=== PATIENT | female | born 1970 | race Caucasian/White ===

== ENCOUNTER 2018-11-07 01:42 | Inpatient (IN) ==
[2018-11-07] MEDS ORDERED: Aluminum/Magnesium/Simethacone Susp 30 ML UDC PO PRN (05:31)
[2018-11-07] MEDS ORDERED: LORazepam 0.5 MG Tablet PO PRN (05:35)
--- NOTE | 2018-11-08 07:16 | P.HPPSY ---
Provisional Diagnosis Admission Date: November 07, 2018 05:00 Dawson I.: Schizoaffective disorder bipolar type Competence Certification of Person's Competence To Provide Express and Informed Consent I have personally examined Bria Jolly, a person being served at [facility] on, November 08, 2018 0656. Express and informed consent means consent voluntarily given in writing, by a competent person, after sufficient explanation and disclosure of the subject matter involved to enable the person to make a knowing and willful decision without any element of force, fraud, deceit, duress, or other form of constraint or coercion. This person is 18 years of age or older, is not now known to be incompetent to consent to treatment with a guardian advocate, and does not have a health care surrogate or proxy currently making medical treatment decisions. I have found this person to be one of the following: [ Competent to provide express and informed consent, as defined above, for voluntary admission to this facility and is competent to provide express and informed consent for treatment. He/she has the consistent capacity to make well reasoned, willful, and knowing decisions concerning his or her medical or mental health treatment. The person fully and consistently understands the purpose of the admission for examination/placement and is fully capable of personally exercising all rights assured [place] [] Incompetent to provide express and informed consent to voluntary admission, and this is incompetent to provide express and informed consent to treatment. The person must be transferred to involuntary status and a petition for a guardian advocate filed with the Circuit Court. [] Refusing to provide express and informed consent to voluntary admission but is competent to provide express and informed consent for treatment. The person must be discharged or transferred to involuntary status. Form shall be completed within 24 hours of a person's arrival at the receiving facility and filed in the clinical record of each person: 1. Admitted on a voluntary basis 2. Permitted to provide express and informed consent to his/her own treatment 3. Allowed to transfer from involuntary to voluntary status 4. Prior to permitting a person to consent to his or her own treatment after having been previously found incompetent to consent to treatment. History of Present Illness Capacity: Lacks capacity Chief Complaint: Homeless hostile aggressive behavior History of Present Illness: 11/08/2018 HPI: Patient is a 48-year-old female admitted in transfer from [facility]. Patient is homeless and is reported to have been violent and aggressive. Patient gave a false name, creating difficulty with the initial documentation. Patient was noted to be extremely hostile giving little or no information. I received information late that the patient had given an incorrect name but was known to the staff from P previous admissions. Examination of the record is also not helpful since there does not appear to be documentation in previous visit. Patient speaks in a graph hostile manner and a loud voice and turns away from estrogens are Patient is using a walker rapidly down the mcgregor walker for support. - Inpatient Certification I certify that the inpatient services were ordered in accordance with Medicare regulations governing the order. This includes certification that hospital inpatient services are reasonable and necessary and in the case of services not specified as inpatient-only under 42 CFR 419.22(n), that they are appropriately provided as inpatient services in accordance to with the 2-midnight benchmark under 43 CFR 412.3(e) I certify that inpatient psychiatric hospital services are medically necessary. Evaluation and treatment and/or diagnostic testing are expected to improve the patient's condition. The patient needs on a daily basis, active treatment furnished directly by or requiring the supervision of inpatient psychiatric facility personnel. Estimated Total Length of Stay (Days): 5 Plans for Post Hospital Care: Not yet determined [facility] - History History Provided By: Patient Medications and Allergies Active Medications: Active Medications Acetaminophen (Tylenol) 650 mg PO Q4H PRN PRN Reason: PAIN 1-5 OR TEMP > 101 Al Hydrox/Mg Hydrox/Simethicone (Mag-Al Plus Susp Liq) 30 ml PO Q6H PRN PRN Reason: DYSPEPSIA Al Hydroxide/Mg Hydroxide (Milk Of Magnesia Liq) 30 ml PO Q24H PRN PRN Reason: CONSTIPATION Diphenhydramine HCl (Benadryl) 50 mg PO Q6H PRN PRN Reason: For mild anxiety and/or EPS Diphenhydramine HCl (Benadryl) 50 mg PO HS PRN PRN Reason: INSOMNIA Diphenhydramine HCl (Benadryl Inj) 50 mg IM HS PRN PRN Reason: INSOMNIA Diphenhydramine HCl (Benadryl Inj) 50 mg IM Q6H PRN PRN Reason: For mild anxiety and/or EPS Lorazepam (Ativan) 0.5 mg PO Q12H PRN PRN Reason: MODERATE TO SEVERE ANXIETY Lorazepam (Ativan Inj) 0.5 mg IM Q12H PRN PRN Reason: MODERATE TO SEVERE ANXIETY Nicotine (Habitrol 21 Mg Patch.24 Hr) 1 patch T-DERMAL DAILY [facility] Last Admin: 11/07/18 09:21 Dose: 1 patch Patch Removal (Remove Old Patch) 1 each T-DERMAL HS [facility] Last Admin: 11/07/18 23:54 Dose: Not Given Allergies Allergy/AdvReac Type Severity Reaction Status Date / Time No Known Allergies Allergy Verified 11/07/18 05:20 Exam Vital signs: Vital Signs 11/07/18 18:20 11/08/18 05:54 Temperature 98.4 F 98.8 F Pulse Rate 83 97 H Respiratory Rate 18 16 Blood Pressure 133/75 119/79 Pulse Oximetry 96 97 Intake & Output 11/07/18 11/07/18 11/08/18 06:59 18:59 06:59 Weight 60.6 kg Other: Weight On Admission 60.6 kg Mental Status Examination Appearance: Dirty, Disheveled Consciousness: Alert, Vigilant Orientation: Person, Place Motor Activity: Other (Uses walker for minimal support) Speech: Other (Hostile gruff loud) Language: Adequate Fund of Knowledge: Poor Attention and Concentration: Easily distracted Mood: Angry, Irritable Affect: Labile Thought Process & Associations: Other (Limited) Thought Content: Other (Unable to test) Hallucination Type: None Delusion Type: Other (Behavior suggests paranoia) Insight: Poor Judgment: Poor Assessment and Plan - Plan Plan: Estimated LOS: [5] days Plan not yet determined Justification for Continued Inpatient Stay: Patient appears to be hostile and paranoid with some aggressive behavior. Little or no information available for making decision as to the patient's baseline behavior.
[2018-11-08] MEDS: Acetaminophen 325 MG Tablet PO PRN (13:11)
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
[2018-11-09] MEDS: Acetaminophen 325 MG Tablet PO PRN ×2 (09:03→15:23)
[2018-11-09] MEDS: Haloperidol 5 MG Tablet PO SCH ×2 (11:26→22:05)
--- NOTE | 2018-11-09 16:14 | P.PNPSY ---
Subjective Chief Complaint: Homeless hostile aggressive behavior Remarks: Patient seen for follow-up, chart reviewed, patient discussed with nursing staff ; we reviewed the patient's mood, thoughts, and behaviors from overnight and this morning. Nurse reports that the patient remains hostile and guarded with staff but is asking to be restarted on her medications. Patient was seen sitting in the day room quietly keeping to herself. Patient became quickly agitated during conversation with the provider, raising her voice, cussing at the provider and demanding that her medications be restarted. The patient cooperated with the informed consent process then asked to be left alone. Review of Systems unobtainable due to mental status Mental Status Examination Appearance: Dirty, Disheveled Consciousness: Alert, Vigilant Orientation: Person, Place Motor Activity: Other (Uses walker for minimal support) Speech: Other (Hostile gruff loud) Language: Adequate Fund of Knowledge: Poor Attention and Concentration: Easily distracted Mood: Angry, Irritable Affect: Labile Thought Process & Associations: Other (Limited) Thought Content: Other (Unable to test) Hallucination Type: None Delusion Type: Other (Behavior suggests paranoia) Suicidal Ideation: No Homicidal Ideation: No Insight: Poor Judgment: Poor Assessment and Plan - Assessment (1) Unspecified episodic mood disorder Code(s): F39 - Unspecified mood [affective] disorder Status: Acute - Plan Plan: 11/09/2018: Unsatisfactory response to treatment; the patient remains hostile and aggressive with disorganized thoughts and behaviors but she is agreeable with restart of previous medications. Continue inpatient psychiatric treatment and stabilization. Restart Haldol 5 mg twice a day for treatment of psychosis. -Restart Cogentin 0.5 mg twice a day for EPS. Discharge planning: The patient is homeless and is not wanting to be referred back to an [facility] at this time but this may soften as she is stabilized with treatment. Justification for Continued Inpatient Stay: Patient remains an elevated risk for self-harm by self neglect and will require further inpatient stabilization and preparation of a safe discharge plan. Moving patient to a less restrictive environment at this time may result in decompensation.
[2018-11-10] MEDS: Haloperidol 5 MG Tablet PO SCH ×2 (08:24→21:33)
[2018-11-10] MEDS: Acetaminophen 325 MG Tablet PO PRN ×3 (08:25→18:25)
--- NOTE | 2018-11-10 15:14 | P.PNPSY ---
Subjective Chief Complaint: Homeless hostile aggressive behavior Remarks: Patient seen for follow-up, chart reviewed, patient discussed with nursing staff ; we reviewed the patient's mood, thoughts, and behaviors from overnight and this morning. Nursing describes the patient has agitated and restless overnight only getting 6 hours of sleep. She has been cooperative with her medications. Patient has been drinking water excessively and when attempted to redirect the patient becomes hostile towards staff. Patient was guarded with the interviewer and initially seemed pleasant but quickly turned angry and walked away from the provider. She seems to be bothered by the difficulty will have an understanding her speech impediment. Patient not been yelling at others or at the provider today which is an improvement. Review of Systems unobtainable due to mental status Mental Status Examination Appearance: Dirty, Disheveled Consciousness: Alert, Vigilant Orientation: Person, Place Motor Activity: Normal gait Speech: Other (Hostile gruff loud) Language: Adequate Fund of Knowledge: Poor Attention and Concentration: Easily distracted Mood: Angry, Irritable Affect: Labile Thought Process & Associations: Other (Limited) Thought Content: Other (Unable to test) Hallucination Type: None Delusion Type: Other (Behavior suggests paranoia) Suicidal Ideation: No Homicidal Ideation: No Insight: Poor Judgment: Poor Assessment and Plan - Assessment (1) Unspecified episodic mood disorder Code(s): F39 - Unspecified mood [affective] disorder Status: Acute - Plan Plan: 11/09/2018: Unsatisfactory response to treatment; the patient remains hostile and aggressive with disorganized thoughts and behaviors but she is agreeable with restart of previous medications. Continue inpatient psychiatric treatment and stabilization. Restart Haldol 5 mg twice a day for treatment of psychosis. -Restart Cogentin 0.5 mg twice a day for EPS. Discharge planning: The patient is homeless and is not wanting to be referred back to an [facility] at this time but this may soften as she is stabilized with treatment. 11/10/2018: Fair response to treatment, the patient was less aggressive today but affect and mood remains labile and she continues to be guarded and somewhat paranoid. Continue inpatient psychiatric treatment and stabilization. -Continue current medications to include Haldol 5 mg twice a day for treatment of psychosis and Cogentin 0.5 mg twice a day for EPS. Justification for Continued Inpatient Stay: Patient remains an elevated risk for self-harm by self neglect and risk of harm to others through aggressive acting out of her paranoia and therefore will require further inpatient stabilization and preparation of a safe discharge plan. Moving patient to a less restrictive environment at this time may result in decompensation.
[2018-11-11] MEDS: Haloperidol 5 MG Tablet PO SCH ×2 (08:36→20:31)
--- NOTE | 2018-11-11 11:01 | P.PNPSY ---
Subjective Chief Complaint: Homeless hostile aggressive behavior Remarks: Patient seen for follow-up, chart reviewed, patient discussed with nursing staff ; we reviewed the patient's mood, thoughts, and behaviors from overnight and this morning. Nursing report from evening shift indicates the patient was much more pleasant and cooperative, she was not hostile when interacting with staff. Patient was seen this morning and she was initially pleasant in her interactions with the provider. She denied any thoughts of suicidal ideations or homicidal ideations. She denied any auditory or visual hallucinations. She denied any pain or discomfort. We discussed her current medications and she expressed satisfaction as well as good tolerability. We discussed her treatment plan and she expressed a sincere motivation to remain in the hospital until medications fully stabilized and she is willing to work with the unit social workers to find senior living placement. The patient agreed to sign voluntarily paperwork. The patient did become acutely agitated and demanding that the paperwork be provided to hurt immediately and she followed the provider to the nurse's station and stood outside the door looking distressed as the orders were placed to convert the patient to voluntary. The patient was redirectable by her nurse without incident. Review of Systems All other systems reviewed negative except as stated in HPI Mental Status Examination Appearance: Appropriate Consciousness: Alert, Vigilant Orientation: x4 Motor Activity: Normal gait Speech: Other (Hostile gruff loud) Language: Adequate Fund of Knowledge: Poor Attention and Concentration: Easily distracted Memory: Unremarkable Mood: Irritable Affect: Labile Thought Process & Associations: Other (Limited) Thought Content: Other (Negativistic and paranoid) Hallucination Type: None Delusion Type: None Suicidal Ideation: No Suicidal Plan: No Suicidal Intention: No Homicidal Ideation: No Homicidal Plan: No Homicidal Intention: No Insight: Fair Judgment: Impulsive Assessment and Plan - Assessment (1) Unspecified episodic mood disorder Code(s): F39 - Unspecified mood [affective] disorder Status: Acute - Plan Plan: 11/09/2018: Unsatisfactory response to treatment; the patient remains hostile and aggressive with disorganized thoughts and behaviors but she is agreeable with restart of previous medications. Continue inpatient psychiatric treatment and stabilization. Restart Haldol 5 mg twice a day for treatment of psychosis. -Restart Cogentin 0.5 mg twice a day for EPS. Discharge planning: The patient is homeless and is not wanting to be referred back to an [facility] at this time but this may soften as she is stabilized with treatment. 11/10/2018: Fair response to treatment, the patient was less aggressive today but affect and mood remains labile and she continues to be guarded and somewhat paranoid. Continue inpatient psychiatric treatment and stabilization. -Continue current medications to include Haldol 5 mg twice a day for treatment of psychosis and Cogentin 0.5 mg twice a day for EPS. 11/11/2018: Good response to treatment, she continues to progress with decreased aggressive behaviors with staff and peers. She remains labile and easily agitated but not to the extent that she has yelling out or otherwise threatening. She was able to participate in discussions about her treatment plan and eventual discharge plan and she expressed sincere willingness to continue working with her treatment team therefore will be allowed to sign herself involuntarily. Continue inpatient psychiatric treatment and stabilization, convert to voluntary status. -Continue current medications to include Haldol 5 mg twice a day for treatment of psychosis and Cogentin 0.5 mg twice a day for EPS. Discharge planning: Patient will need follow-up with psychiatry as well as assistance in finding senior living. Justification for Continued Inpatient Stay: Patient remains an elevated risk for self-harm by self neglect and risk of harm to others if she has been aggressive intermittently through this hospitalization as a consequence of her paranoia and therefore she will require further inpatient stabilization and preparation of a safe discharge plan. Moving patient to a less restrictive environment at this time may result in decompensation.
[2018-11-11] MEDS: Acetaminophen 325 MG Tablet PO PRN (13:15)
[2018-11-12] MEDS: Haloperidol 5 MG Tablet PO SCH ×2 (08:36→21:13)
--- NOTE | 2018-11-12 12:15 | P.PNPSY ---
Subjective Chief Complaint: Homeless hostile aggressive behavior Remarks: Patient seen for follow-up, chart reviewed, patient discussed with nursing staff ; we reviewed the patient's mood, thoughts, and behaviors from overnight and this morning. Nursing reports the patient remained seclusive to her room on the evening shift and was irritable with staff. Patient was seen this morning after breakfast and as usual she is initially pleasant. With the provider but then her affect changes quickly if she becomes frustrated with communications. She was asked about her hospitalization and she denies wanting to leave and remains cooperative with care. She reports good tolerability of medications satisfied with her efficacy. We discussed her constant thirst for water she was encouraged to drink some Gatorade with meals to ensure that she does not drop her sodium to low. She reports that her thirst is a chronic problem and she seems to lack insight as to why the staff are concerned. Review of Systems All other systems reviewed negative except as stated in HPI Mental Status Examination Appearance: Appropriate Consciousness: Alert, Vigilant Orientation: x4 Motor Activity: Normal gait Speech: Other (Hostile gruff loud) Language: Adequate Fund of Knowledge: Poor Attention and Concentration: Easily distracted Memory: Unremarkable Mood: Irritable Affect: Labile Thought Process & Associations: Other (Limited) Thought Content: Other (Negativistic and paranoid) Hallucination Type: None Delusion Type: None Suicidal Ideation: No Suicidal Plan: No Suicidal Intention: No Homicidal Ideation: No Homicidal Plan: No Homicidal Intention: No Insight: Fair Judgment: Impulsive Assessment and Plan - Assessment (1) Unspecified episodic mood disorder Code(s): F39 - Unspecified mood [affective] disorder Status: Acute - Plan Plan: 11/09/2018: Unsatisfactory response to treatment; the patient remains hostile and aggressive with disorganized thoughts and behaviors but she is agreeable with restart of previous medications. Continue inpatient psychiatric treatment and stabilization. Restart Haldol 5 mg twice a day for treatment of psychosis. -Restart Cogentin 0.5 mg twice a day for EPS. Discharge planning: The patient is homeless and is not wanting to be referred back to an [facility] at this time but this may soften as she is stabilized with treatment. 11/10/2018: Fair response to treatment, the patient was less aggressive today but affect and mood remains labile and she continues to be guarded and somewhat paranoid. Continue inpatient psychiatric treatment and stabilization. -Continue current medications to include Haldol 5 mg twice a day for treatment of psychosis and Cogentin 0.5 mg twice a day for EPS. 11/11/2018: Good response to treatment, she continues to progress with decreased aggressive behaviors with staff and peers. She remains labile and easily agitated but not to the extent that she has yelling out or otherwise threatening. She was able to participate in discussions about her treatment plan and eventual discharge plan and she expressed sincere willingness to continue working with her treatment team therefore will be allowed to sign herself involuntarily. Continue inpatient psychiatric treatment and stabilization, convert to voluntary status. -Continue current medications to include Haldol 5 mg twice a day for treatment of psychosis and Cogentin 0.5 mg twice a day for EPS. Discharge planning: Patient will need follow-up with psychiatry as well as assistance in finding intermediate. 11/12/2018: Good response to treatment, no need for ETO's of the last 48 hours and she is having moments of appropriate mood and interactions without hostility. Continue inpatient psychiatric treatment and stabilization as the patient is slowly progressing with the current medication regimen. Justification for Continued Inpatient Stay: Patient remains an elevated risk for self-harm by self neglect and will require further inpatient stabilization and preparation of a safe discharge plan. Moving patient to a less restrictive environment at this time may result in decompensation.
[2018-11-12] MEDS: Acetaminophen 325 MG Tablet PO PRN ×2 (15:09→21:21)
[2018-11-13] MEDS: Haloperidol 5 MG Tablet PO SCH ×2 (09:44→21:00)
[2018-11-13] MEDS: Acetaminophen 325 MG Tablet PO PRN ×2 (10:26→17:11)
--- NOTE | 2018-11-13 13:15 | P.PNPSY ---
Subjective Chief Complaint: Homeless hostile aggressive behavior Remarks: Patient seen for follow-up, chart reviewed, patient discussed with nursing staff ; we reviewed the patient's mood, thoughts, and behaviors from overnight and this morning. Nurse reports that the patient seemed to be responding to internal stimuli on the evening shift. She complained of pain but was given Tylenol and it was effective with a reduction from 7 out of 10 to 4 out of 10. Patient was seen at bedside this morning that she was very irritable with psychiatrist and nurse. The patient did complain of not having her nicotine patch put on early enough and also complaining of pain. Patient was asked whether she is been treated with antidepressants in the past to help with her irritability and she confirmed that she had. We discussed various SSRIs and she had positive reflections about Prozac and after discussion of the risk benefits side effects and alternatives he agrees to add Prozac as an adjunctive treatment of her mood and behavior. Mental Status Examination Appearance: Appropriate Consciousness: Alert, Vigilant Orientation: x4 Motor Activity: Normal gait Speech: Other (Hostile gruff loud) Language: Adequate Fund of Knowledge: Poor Attention and Concentration: Easily distracted Memory: Unremarkable Mood: Irritable Affect: Labile Thought Process & Associations: Other (Limited) Thought Content: Other (Negativistic and paranoid) Hallucination Type: None Delusion Type: None Suicidal Ideation: No Suicidal Plan: No Suicidal Intention: No Homicidal Ideation: No Homicidal Plan: No Homicidal Intention: No Insight: Fair Judgment: Impulsive Assessment and Plan - Assessment (1) Unspecified episodic mood disorder Code(s): F39 - Unspecified mood [affective] disorder Status: Acute (2) Anxiety Code(s): F41.9 - Anxiety disorder, unspecified Status: Acute - Plan Plan: 11/09/2018: Unsatisfactory response to treatment; the patient remains hostile and aggressive with disorganized thoughts and behaviors but she is agreeable with restart of previous medications. Continue inpatient psychiatric treatment and stabilization. Restart Haldol 5 mg twice a day for treatment of psychosis. -Restart Cogentin 0.5 mg twice a day for EPS. Discharge planning: The patient is homeless and is not wanting to be referred back to an NURSING HOME at this time but this may soften as she is stabilized with treatment. 11/10/2018: Fair response to treatment, the patient was less aggressive today but affect and mood remains labile and she continues to be guarded and somewhat paranoid. Continue inpatient psychiatric treatment and stabilization. -Continue current medications to include Haldol 5 mg twice a day for treatment of psychosis and Cogentin 0.5 mg twice a day for EPS. 11/11/2018: Good response to treatment, she continues to progress with decreased aggressive behaviors with staff and peers. She remains labile and easily agitated but not to the extent that she has yelling out or otherwise threatening. She was able to participate in discussions about her treatment plan and eventual discharge plan and she expressed sincere willingness to continue working with her treatment team therefore will be allowed to sign herself involuntarily. Continue inpatient psychiatric treatment and stabilization, convert to voluntary status. -Continue current medications to include Haldol 5 mg twice a day for treatment of psychosis and Cogentin 0.5 mg twice a day for EPS. Discharge planning: Patient will need follow-up with psychiatry as well as assistance in finding [facility]. 11/12/2018: Good response to treatment, no need for ETO's of the last 48 hours and she is having moments of appropriate mood and interactions without hostility. Continue inpatient psychiatric treatment and stabilization as the patient is slowly progressing with the current medication regimen. 11/13/2018: Fair response to treatment as the patient has not required ETO's in over 72 hours but her mood remains extremely hostile at times and her aggression places her at risk of harm to self and others. The patient's hostility seems to stem from a decreased frustration tolerance as well as anxiety therefore SSRI recommended for treatment and the patient agrees. Continue inpatient psychiatric treatment and stabilization as the patient is slowly progressing with the current medication regimen. Start Prozac 20 mg/day for treatment of anxiety and irritability. Discharge planning: Patient will need follow-up with psychiatry as well as assistance in finding [facility], anticipate discharge on Friday. Justification for Continued Inpatient Stay: Patient remains an elevated risk for self-harm by self neglect due to her paranoia as well as risk of harm to others through her paranoia and aggressive behaviors and therefore will require further inpatient stabilization and preparation of a safe discharge plan. Moving patient to a less restrictive environment at this time may result in decompensation.
[2018-11-13] MEDS: FLUoxetine 20 MG Capsule PO SCH (21:00)
[2018-11-14] MEDS: Haloperidol 5 MG Tablet PO SCH ×2 (09:27→21:02)
[2018-11-14] MEDS: Acetaminophen 325 MG Tablet PO PRN ×2 (09:29→17:52)
--- NOTE | 2018-11-14 13:06 | P.PNPSY ---
Subjective Chief Complaint: Homeless hostile aggressive behavior Remarks: Patient was seen and case discussed with nursing. Patient is intrusive and loose. She is difficult to understand with some pressured speech. She is behaving well on the unit. Interacting well with others. Compliant with medications. Her auditory hallucinations are telling her that they are sorry. Affect is quite irritable Review of Systems All other systems reviewed negative except as stated in HPI Mental Status Examination Appearance: Appropriate Consciousness: Alert, Vigilant Orientation: x4 Motor Activity: Normal gait Speech: Other (Hostile gruff loud) Language: Adequate Fund of Knowledge: Poor Attention and Concentration: Easily distracted Memory: Unremarkable Mood: Irritable Affect: Labile Thought Process & Associations: Other (Limited) Thought Content: Other (Negativistic and paranoid) Hallucination Type: None Delusion Type: None Suicidal Ideation: No Suicidal Plan: No Suicidal Intention: No Homicidal Ideation: No Homicidal Plan: No Homicidal Intention: No Insight: Fair Judgment: Impulsive Assessment and Plan - Assessment (1) Unspecified episodic mood disorder Code(s): F39 - Unspecified mood [affective] disorder Status: Acute (2) Anxiety Code(s): F41.9 - Anxiety disorder, unspecified Status: Acute - Plan Plan: Continue current treatment plan Justification for Continued Inpatient Stay: Patient would decompensate in a less restrictive setting
[2018-11-14] MEDS: FLUoxetine 20 MG Capsule PO SCH (21:02)
[2018-11-15] MEDS: Haloperidol 5 MG Tablet PO SCH ×2 (08:42→20:54)
[2018-11-15] MEDS: Acetaminophen 325 MG Tablet PO PRN (08:43)
--- NOTE | 2018-11-15 17:25 | P.PNPSY ---
Subjective Chief Complaint: Homeless hostile aggressive behavior Remarks: Reviewed electronic medical records and discussed case with staff. Follow-up was conducted in the patient's room with EB Graves present. Patient is found in her bed awake. States that she is "doing all right". Reports that she is sleeping "kind disorder okay". She reports good appetite. When asked to rate her mood she states that she is "sad, angry, and depressed". When asked why she feels this way she states "I was killed and so was my ". When I asked her him she was killed by she states, "you know who Anastasia Norris". At that point she tells me to get out of her room and I do so. Mental Status Examination Appearance: Appropriate Consciousness: Alert, Vigilant Orientation: x4 Motor Activity: Normal gait Speech: Other (Hostile gruff loud) Language: Adequate Fund of Knowledge: Poor Attention and Concentration: Easily distracted Memory: Unremarkable Mood: Irritable Affect: Labile Thought Process & Associations: Other (Limited) Thought Content: Other (Negativistic and paranoid) Hallucination Type: None Delusion Type: None Suicidal Ideation: No Suicidal Plan: No Suicidal Intention: No Homicidal Ideation: No Homicidal Plan: No Homicidal Intention: No Insight: Fair Judgment: Impulsive Assessment and Plan - Assessment (1) Unspecified episodic mood disorder Code(s): F39 - Unspecified mood [affective] disorder Status: Acute - Plan Plan: Patient will be reevaluated by the attending psychiatrist. Continue with current treatment plan. Justification for Continued Inpatient Stay: Moving this patient to a less restrictive environment would likely result in decompensation.
[2018-11-15] MEDS: FLUoxetine 20 MG Capsule PO SCH (20:54)
[2018-11-16] MEDS: Haloperidol 5 MG Tablet PO SCH (08:50)
--- NOTE | 2018-11-16 13:52 | P.PNPSY ---
Subjective Chief Complaint: Homeless hostile aggressive behavior Remarks: Patient seen for follow-up, chart reviewed, patient discussed with nursing staff ; we reviewed the patient's mood, thoughts, and behaviors from overnight and this morning. Nurse reports the patient has been calm and cooperative today. Documentation in the chart reveals that the patient was hostile with staff over the weekend. She expressed the delusional belief that she and her were killed by Anastasia Norris. 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 Patient was described as labile , impulsive, and abrupt. Patient was seen at bedside after lunch where she was taking a nap. She was easy to awaken by name. Patient was asked about her weekend that she reports "same old same old." Patient was asked about her mood and she continues to express an angry and anxious mood. She denies any physical discomfort and seems to be tolerating her medications to include the start of Prozac. The patient on her own asked about previous discussions we had as to changing her Haldol to a injectable form. We discussed risks benefits side effects and alternatives and the patient completed the informed consent signatures for Haldol Decanoate. The patient was advised that we would be pursuing a safe discharge plan this week and she had no comment. Review of Systems All other systems reviewed negative except as stated in HPI Mental Status Examination Appearance: Appropriate Consciousness: Alert, Vigilant Orientation: x4 Motor Activity: Normal gait Speech: Other (Hostile gruff loud) Language: Adequate Fund of Knowledge: Poor Attention and Concentration: Easily distracted Memory: Unremarkable Mood: Irritable Affect: Labile Thought Process & Associations: Other (Limited) Thought Content: Other (Negativistic and paranoid) Hallucination Type: None Delusion Type: None Suicidal Ideation: No Suicidal Plan: No Suicidal Intention: No Homicidal Ideation: No Homicidal Plan: No Homicidal Intention: No Insight: Fair Judgment: Impulsive Assessment and Plan - Assessment (1) Unspecified episodic mood disorder Code(s): F39 - Unspecified mood [affective] disorder Status: Acute (2) Anxiety Code(s): F41.9 - Anxiety disorder, unspecified Status: Acute - Plan Plan: 11/09/2018: Unsatisfactory response to treatment; the patient remains hostile and aggressive with disorganized thoughts and behaviors but she is agreeable with restart of previous medications. Continue inpatient psychiatric treatment and stabilization. Restart Haldol 5 mg twice a day for treatment of psychosis. -Restart Cogentin 0.5 mg twice a day for EPS. Discharge planning: The patient is homeless and is not wanting to be referred back to an [facility] at this time but this may soften as she is stabilized with treatment. 11/10/2018: Fair response to treatment, the patient was less aggressive today but affect and mood remains labile and she continues to be guarded and somewhat paranoid. Continue inpatient psychiatric treatment and stabilization. -Continue current medications to include Haldol 5 mg twice a day for treatment of psychosis and Cogentin 0.5 mg twice a day for EPS. 11/11/2018: Good response to treatment, she continues to progress with decreased aggressive behaviors with staff and peers. She remains labile and easily agitated but not to the extent that she has yelling out or otherwise threatening. She was able to participate in discussions about her treatment plan and eventual discharge plan and she expressed sincere willingness to continue working with her treatment team therefore will be allowed to sign herself involuntarily. Continue inpatient psychiatric treatment and stabilization, convert to voluntary status. -Continue current medications to include Haldol 5 mg twice a day for treatment of psychosis and Cogentin 0.5 mg twice a day for EPS. Discharge planning: Patient will need follow-up with psychiatry as well as assistance in finding senior care. 11/12/2018: Good response to treatment, no need for ETO's of the last 48 hours and she is having moments of appropriate mood and interactions without hostility. Continue inpatient psychiatric treatment and stabilization as the patient is slowly progressing with the current medication regimen. 11/13/2018: Fair response to treatment as the patient has not required ETO's in over 72 hours but her mood remains extremely hostile at times and her aggression places her at risk of harm to self and others. The patient's hostility seems to stem from a decreased frustration tolerance as well as anxiety therefore SSRI recommended for treatment and the patient agrees. Continue inpatient psychiatric treatment and stabilization as the patient is slowly progressing with the current medication regimen. Start Prozac 20 mg/day for treatment of anxiety and irritability. Discharge planning: Patient will need follow-up with psychiatry as well as assistance in finding senior care, anticipate discharge on Friday. 11/16/2018: Unsatisfactory response to treatment; the patient remains hostile and irritable as well as expressing delusional thinking despite compliance with current medications. The patient had initially refused discussions about increasing her medications or changing to a long-acting injectable but today she was asking about these treatments without being prompted. She expressed sincere motivation to increase her Haldol and switch to a long-acting injectable form. She was more ambivalent about discharge plans today which is an improvement over her reported hostility and combativeness when it was suggested she be discharged the start of this week. Continue inpatient treatment and stabilization, observing for continued tolerability of psychotropics and the recent increase of her Haldol. Convert Haldol to Haldol decanoate 100 mg IM every 28 days first dose today. Continue Prozac 20 mg a day for treatment of anxiety and irritability. Discharge planning: Patient will need follow-up with psychiatry as well as assistance in finding senior care, anticipate discharge this week. Justification for Continued Inpatient Stay: Patient remains an elevated risk for self-harm by self neglect and risk of harm to others through her paranoia and aggressive acting out, therefore she will require further inpatient stabilization and preparation of a safe discharge plan. Moving patient to a less restrictive environment at this time may result in decompensation.
[2018-11-16] MEDS ORDERED: Haloperidol Decanoate Inj 50 MG/ML Ampul IM ONE (15:00)
[2018-11-16 16:51] VITALS: O2SAT 98
[2018-11-16] MEDS: FLUoxetine 20 MG Capsule PO SCH (20:23)
[2018-11-17 05:28] VITALS: BP 120/70; PULSE 70; RESP 16; TEMP 97.9
[2018-11-17] MEDS ORDERED: Haloperidol Decanoate Inj 50 MG/ML Ampul IM SCH (13:15)
--- NOTE | 2018-11-17 15:41 | P.DSPSY ---
Psychiatry Discharge Summary Inpatient Psychiatric care?: Yes Advance Directives: No Mental Health Advance Directive: No Health Care Proxy: No - Admission Admission Date: November 07, 2018 05:00 - Admission Diagnosis (1) Unspecified episodic mood disorder Code(s): F39 - Unspecified mood [affective] disorder Brief History: 11/08/2018 HPI: Patient is a 48-year-old female admitted in transfer from [facility]. Patient is homeless and is reported to have been violent and aggressive. Patient gave a false name, creating difficulty with the initial documentation. Patient was noted to be extremely hostile giving little or no information. I received information late that the patient had given an incorrect name but was known to the staff from P previous admissions. Examination of the record is also not helpful since there does not appear to be documentation in previous visit. Patient speaks in a graph hostile manner and a loud voice and turns away from estrogens are Patient is using a walker rapidly down the [employer] walker for support. Tobacco Use In Past 30 Days: Yes How Often Do You Have a Drink Containing Alcohol: Never Hospital Course: 11/09/2018: Unsatisfactory response to treatment; the patient remains hostile and aggressive with disorganized thoughts and behaviors but she is agreeable with restart of previous medications. Continue inpatient psychiatric treatment and stabilization. Restart Haldol 5 mg twice a day for treatment of psychosis. -Restart Cogentin 0.5 mg twice a day for EPS. Discharge planning: The patient is homeless and is not wanting to be referred back to an [facility] at this time but this may soften as she is stabilized with treatment. 11/10/2018: Fair response to treatment, the patient was less aggressive today but affect and mood remains labile and she continues to be guarded and somewhat paranoid. Continue inpatient psychiatric treatment and stabilization. -Continue current medications to include Haldol 5 mg twice a day for treatment of psychosis and Cogentin 0.5 mg twice a day for EPS. 11/11/2018: Good response to treatment, she continues to progress with decreased aggressive behaviors with staff and peers. She remains labile and easily agitated but not to the extent that she has yelling out or otherwise threatening. She was able to participate in discussions about her treatment plan and eventual discharge plan and she expressed sincere willingness to continue working with her treatment team therefore will be allowed to sign herself involuntarily. Continue inpatient psychiatric treatment and stabilization, convert to voluntary status. -Continue current medications to include Haldol 5 mg twice a day for treatment of psychosis and Cogentin 0.5 mg twice a day for EPS. Discharge planning: Patient will need follow-up with psychiatry as well as assistance in finding prison. 11/12/2018: Good response to treatment, no need for ETO's of the last 48 hours and she is having moments of appropriate mood and interactions without hostility. Continue inpatient psychiatric treatment and stabilization as the patient is slowly progressing with the current medication regimen. 11/13/2018: Fair response to treatment as the patient has not required ETO's in over 72 hours but her mood remains extremely hostile at times and her aggression places her at risk of harm to self and others. The patient's hostility seems to stem from a decreased frustration tolerance as well as anxiety therefore SSRI recommended for treatment and the patient agrees. Continue inpatient psychiatric treatment and stabilization as the patient is slowly progressing with the current medication regimen. Start Prozac 20 mg/day for treatment of anxiety and irritability. Discharge planning: Patient will need follow-up with psychiatry as well as assistance in finding prison, anticipate discharge on Friday. 11/16/2018: Unsatisfactory response to treatment; the patient remains hostile and irritable as well as expressing delusional thinking despite compliance with current medications. The patient had initially refused discussions about increasing her medications or changing to a long-acting injectable but today she was asking about these treatments without being prompted. She expressed sincere motivation to increase her Haldol and switch to a long-acting injectable form. She was more ambivalent about discharge plans today which is an improvement over her reported hostility and combativeness when it was suggested she be discharged the start of this week. Continue inpatient treatment and stabilization, observing for continued tolerability of psychotropics and the recent increase of her Haldol. Convert Haldol to Haldol decanoate 100 mg IM every 28 days first dose today. Continue Prozac 20 mg a day for treatment of anxiety and irritability. Discharge planning: Patient will need follow-up with psychiatry as well as assistance in finding prison, anticipate discharge this week. Justification for Continued Inpatient Stay: Patient remains an elevated risk for self-harm by self neglect and risk of harm to others through her paranoia and aggressive acting out, therefore she will require further inpatient stabilization and preparation of a safe discharge plan. Moving patient to a less restrictive environment at this time may result in decompensation. 11/17/2018: Patient was seen and examined on the unit by psychiatry and also visited by counselor. Psychotropic medications remained well tolerated. There was a good response to inpatient treatment plan noted by nursing and provider observations, and the patient reported improvements in mood, anxiety, and there was no evidence of any suicidality or homicidality at time of discharge. The unit renal social worker was able to reach out to the patient's previous assisted living facility and a room is still available for her and they were willing to accept her back today. Psychiatric follow-up as arranged by counselor. Patient is also to follow up with primary care. I have counseled the patient to abstain from substances of abuse including cannabis and have counseled patient to return to the psychiatric emergency room for any concerning symptoms as part of a general safety plan. Discharge medications include Cogentin 1 mg twice a day #60 refill 0, Benadryl 50 mg at bedtime as needed for sleep #30 refills 0, Prozac 20 mg by mouth once a day #30 refill 0, Haldol decanoate 100 mg IM every 28 days with the next shot scheduled for December 15, 2018. - Discharge Discharge Date: 11/17/18 - Discharge Diagnosis (1) Schizophrenia, paranoid, chronic Code(s): F20.0 - Paranoid schizophrenia Status: Acute (2) Anxiety Code(s): F41.9 - Anxiety disorder, unspecified Status: Acute Discharge Disposition: Assisted Living Facility - Discharge Instructions Discharge Diet: Regular Diet Activities You Can Perform: Regular- No Restrictions - Discharge Time > 30 minutes Mental Status Examination Appearance: Appropriate Consciousness: Alert, Vigilant Orientation: x4 Motor Activity: Normal gait Speech: Other (Hostile gruff loud) Language: Adequate Fund of Knowledge: Adequate Attention and Concentration: Adequate, Easily distracted Memory: Unremarkable Mood: Good Affect: Euthymic Thought Process & Associations: Other (Limited) Thought Content: Appropriate Hallucination Type: None Delusion Type: None Suicidal Ideation: No Suicidal Plan: No Suicidal Intention: No Homicidal Ideation: No Homicidal Plan: No Homicidal Intention: No Insight: Fair Judgment: Impulsive Discharge/Advance Care Plan - Results Vital Signs: Last Vital Signs Temp 97.9 F 11/17/18 05:26 Pulse 70 11/17/18 05:26 Resp 16 11/17/18 05:26 BP 120/70 11/17/18 05:26 Pulse Ox 98 11/16/18 16:50 Lab Results: None ordered during this admission Summary of Procedures: None ordered Pending Results: None - Medications Number of antipsychotic medications at discharge: 1 - Discharge Care Plan Goals to Promote Your Health: * To prevent worsening of your condition and complications * To maintain your health at the optimal level Directions to Meet Your Goals: Take your medications as prescribed Follow your dietary instruction Follow activity as directed Keep your appointments as scheduled Take your immunizations and boosters as scheduled If your symptoms worsen call your PCP, if no PCP go to Urgent Care Center or Emergency Room For 02/06 questions related to your inpatient stay or results of tests pending at discharge, please contact Dr. Nitesh Richards MD at Smoking is Dangerous to Your Health. Avoid second hand smoking
== END 2018-11-17 16:45 ==
LOC: EDBD 05:00 → H260 05:00
PROVIDERS: ADMIT Psychiatry & Neurology Psychiatry; ATTEND Psychiatry & Neurology Psychiatry